=== PATIENT | female | born 1930 | race African-American/Black ===

== ENCOUNTER 2021-05-05 08:47 | Emergency (ER) | payer OTHER ==
[~2021-05-05] VITALS: Ht 165.1 cm; Wt 92.0 kg
[2021-05-05] MEDS ORDERED: XAR15 MT (10:51)
[2021-05-05 13:26] VITALS: BP 121/47
== END 2021-05-05 13:45 | disposition home or self-care (01) ==
LOC: ER 09:01
DX: I82.401 Acute embolism and thrombosis of unspecified deep veins of right lower extremity (principal)
CPT/HCPCS: 99283

== ENCOUNTER 2021-06-15 11:10 | Inpatient (IN) | payer OTHER ==
[~2021-06-15] VITALS: Ht 157.5 cm; Wt 70.3 kg
[~2021-06-15 11:10] MED LIST: XAR15 MT
[2021-06-15 12:07] LABS: CHLORIDE 110 mEq/L (98-107)
[2021-06-15 12:21] LABS: HEMOGLOBIN. 7.1 g/dL (12.0-16.0); MEAN CORPUSCULAR HEMOGLOBIN 31.3 pg (28.0-32.0); MEAN CORPUSCULAR VOLUME 87.5 fL (81.0-99.0); PLATELET 220 x1000/uL (130-400); RED BLOOD CELL COUNT 2.28 mill/uL (4.2-5.4); RED CELL DISTRIBUTION WIDTH 14.9 % (11.6-14.6)
[2021-06-15] MEDS ORDERED: PIPERACILLIN/TAZ 3.375G PREMIX 50 ML IV ONE (13:00)
[2021-06-15] MEDS ORDERED: VANCOMYCIN 1 G PREMIX 200 ML IV ONE (13:00)
[2021-06-15 13:49] LABS: PLATELET ESTIMATE NORMAL
[2021-06-15] MEDS ORDERED: LIDOCAINE HCL 1% 20ML VIAL (Pyxis) INJ ONE (13:55)
[2021-06-15] MEDS ORDERED: NOREPINEPHRINE 8MG/250ML PMX 250 ML IV STA (14:14)
[2021-06-15] MEDS ORDERED: NOREPINEPHRINE 8MG/250ML PMX 250 ML IV ONE (14:25)
[2021-06-15] MEDS ORDERED: SODIUM CHLORIDE 0.9% 1000ML BAG (SEPSIS BOLUS) IV ONE (16:00)
[2021-06-15 16:29] LABS: CLARITY URINE CLEAR (CLEAR); COLOR URINE DARK YELLOW (YELLOW); KETONES URINE NEGATIVE (NEGATIVE); LEUKOCYTE ESTERASE URINE TRACE (NEGATIVE); NITRITE URINE NEGATIVE (NEGATIVE); OCCULT BLOOD URINE NEGATIVE (NEGATIVE); PROTEIN URINE TRACE (NEGATIVE); SPECIFIC GRAVITY URINE 1.014 (1.005-1.030)
[2021-06-15] MEDS ORDERED: GUAIFENESIN 200MG/10ML SUGAR FREE UDC PO PRN (16:45)
[2021-06-15] MEDS ORDERED: DOCUSATE SODIUM 100MG CAPSULE PO PRN (16:45)
[2021-06-15] MEDS ORDERED: NITROGLYCERIN 0.4MG TABLET SL SL PRN (16:45)
[2021-06-15] MEDS ORDERED: CLONIDINE 0.1MG TABLET PO PRN (16:45)
[2021-06-15] MEDS ORDERED: ONDANSETRON HCL 4MG/2ML INJ IV PRN (16:45)
[2021-06-15] MEDS ORDERED: ACETAMINOPHEN 325MG TABLET PO PRN ×2 (16:45)
[2021-06-15] MEDS ORDERED: MAGNESIUM/ALUMINUM HYDROXIDE/SIMETHICONE 30ML UDC PO PRN (16:45)
[2021-06-15] MEDS ORDERED: IPRATROPIUM/ALBUTEROL 0.5-3(2.5)MG/3ML NEB NEB PRN (16:45)
[2021-06-15] MEDS ORDERED: POTASSIUM CHLORIDE 20MEQ TABLET SR PO NR (16:56)
[2021-06-15] MEDS ORDERED: NOREPINEPHRINE 8 MG in DEXT 5% WATER 242 ML IV PRN (17:00)
[2021-06-15] MEDS: DEXT 5%/0.45% NACL 1000ML 1,000 ML IV SCH (17:39)
[2021-06-15 17:44] LABS: INR 1.2; PROTHROMBIN TIME 12.7 sec (9.6-11.0)
[2021-06-15 17:46] LABS: FOLIC ACID (FOLATE) SERUM 8.2 ng/mL (>5.38)
[2021-06-15] MEDS ORDERED: DOPAMINE 400MG/250ML PREMIX 250 ML IV PRN (20:00)
[2021-06-15] MEDS ORDERED: ZOLPIDEM TARTRATE 5MG TABLET PO PRN (21:00)
[2021-06-15] MEDS: PIPERACILLIN/TAZOBACTAM 2.25 G in DEXTROSE 5% WATER 50 ML IV SCH (22:07)
[2021-06-15 23:00] VITALS: BP 120/59
[2021-06-15 23:40] VITALS: BP 120/57
[2021-06-15 23:45] VITALS: BP 120/57
[2021-06-16] VITALS (83 sets, daily range): BP systolic 69–150; BP diastolic 13–92
[2021-06-16] MEDS ORDERED: MV-M1TAB19 PO (00:47)
[2021-06-16] MEDS ORDERED: FURO20TA4 PO (00:47)
[2021-06-16] MEDS ORDERED: ATOR20TA65 PO (00:49)
[2021-06-16] MEDS ORDERED: POTA10TA2 PO (00:49)
[2021-06-16] MEDS ORDERED: ATEN50TA PO (00:49)
[2021-06-16] MEDS ORDERED: AMLO5TAB88 PO (00:49)
[2021-06-16] MEDS: DEXT 5%/0.45% NACL 1000ML 1,000 ML IV SCH ×3 (03:01→23:39)
[2021-06-16 03:37] LABS: *AMPHETAMINES SCREEN URINE NEGATIVE (NEGATIVE); *BARBITURATES SCREEN URINE NEGATIVE (NEGATIVE); *BENZODIAZEPINES SCREEN URINE NEGATIVE (NEGATIVE); *COCAINE SCREEN URINE NEGATIVE (NEGATIVE); METHADONE URINE SCREEN NEGATIVE (NEGATIVE); OPIATES URINE SCREEN NEGATIVE (NEGATIVE)
[2021-06-16 03:38] LABS: CANNABINOID URINE SCREEN NEGATIVE (NEGATIVE); PHENCYCLIDINE URINE SCREEN NEGATIVE (NEGATIVE)
[2021-06-16] MEDS: PIPERACILLIN/TAZOBACTAM 2.25 G in DEXTROSE 5% WATER 50 ML IV SCH (06:09)
[2021-06-16 07:25] LABS: HEMATOCRIT. 23.5 % (36.0-48.0); HEMOGLOBIN. 7.9 g/dL (12.0-16.0); MEAN CORPUSCULAR HEMOGLOBIN 29.9 pg (28.0-32.0); MEAN CORPUSCULAR VOLUME 88.6 fL (81.0-99.0); MEAN PLATELET VOLUME 7.3 fl (7.4-10.4); PLATELET 210 x1000/uL (130-400); RED BLOOD CELL COUNT 2.66 mill/uL (4.2-5.4); RED CELL DISTRIBUTION WIDTH 15.1 % (11.6-14.6)
[2021-06-16 07:28] LABS: CHLORIDE 112 mEq/L (98-107)
[2021-06-16 07:41] LABS: PHOSPHORUS 2.6 mg/dL (2.5-4.9)
[2021-06-16] MEDS: PANTOPRAZOLE SODIUM 40 MG/VIAL IV SCH (08:40)
[2021-06-16] MEDS: DOPAMINE 400MG/250ML PREMIX 250 ML IV PRN ×2 (08:42→17:15)
[2021-06-16] MEDS ORDERED: POTASSIUM CHLORIDE INJ 80 MEQ in DEXT 5% WATER 500 ML IV ONE (08:45)
[2021-06-16] MEDS: POTASSIUM CHLORIDE INJ 40 MEQ in DEXT 5% WATER 250 ML IV SCH ×2 (15:04→17:16)
[2021-06-16] MEDS: VANCOMYCIN 500 MG PREMIX 100 ML IV SCH (17:14)
[2021-06-16] MEDS: PIPERACILLIN/TAZOBACTAM 2.25G in DEXTROSE 5% WATER 50ML IV SCH ×2 (17:15→23:42)
[2021-06-16 21:09] LABS: PLATELET ESTIMATE NORMAL
[2021-06-17] VITALS (86 sets, daily range): BP systolic 67–187; BP diastolic 20–140
[2021-06-17] MEDS: DOPAMINE 400MG/250ML PREMIX 250 ML IV PRN ×2 (04:34→15:37)
[2021-06-17] MEDS: PIPERACILLIN/TAZOBACTAM 2.25G in DEXTROSE 5% WATER 50ML IV SCH ×3 (05:33→18:54)
[2021-06-17] MEDS: PANTOPRAZOLE SODIUM 40 MG/VIAL IV SCH (09:01)
[2021-06-17] MEDS: DEXT 5%/0.45% NACL 1000ML 1,000 ML IV SCH ×2 (09:01→18:54)
[2021-06-17] MEDS: VANCOMYCIN 500 MG PREMIX 100 ML IV SCH (14:50)
[2021-06-17 17:43] LABS: HEMATOCRIT. 22.2 % (36.0-48.0); HEMOGLOBIN. 7.6 g/dL (12.0-16.0); MEAN CORPUSCULAR HEMOGLOBIN 30.9 pg (28.0-32.0); MEAN CORPUSCULAR VOLUME 90.3 fL (81.0-99.0); MEAN PLATELET VOLUME 7.5 fl (7.4-10.4); PLATELET 162 x1000/uL (130-400); RED BLOOD CELL COUNT 2.46 mill/uL (4.2-5.4); RED CELL DISTRIBUTION WIDTH 15.9 % (11.6-14.6)
[2021-06-17 18:26] LABS: PLATELET ESTIMATE NORMAL
[2021-06-17 18:56] LABS: CHLORIDE 111 mEq/L (98-107)
[2021-06-17] MEDS ORDERED: KCL 20MEQ/100ML PREMIX 100 ML IV NR (20:30)
[2021-06-18] VITALS (76 sets, daily range): BP systolic 40–145; BP diastolic 23–90
[2021-06-18] MEDS: PIPERACILLIN/TAZOBACTAM 2.25G in DEXTROSE 5% WATER 50ML IV SCH ×4 (00:14→18:13)
[2021-06-18] MEDS: DOPAMINE 400MG/250ML PREMIX 250 ML IV PRN (04:32)
[2021-06-18] MEDS: DEXT 5%/0.45% NACL 1000ML 1,000 ML IV SCH ×2 (05:57→15:51)
[2021-06-18] MEDS: PANTOPRAZOLE SODIUM 40 MG/VIAL IV SCH (08:26)
[2021-06-18 10:47] LABS: BASOPHILS % 0.1 % (0.0-2.0); EOSINOPHILS % 0.1 % (0.0-5.0); HEMATOCRIT. 21.6 % (36.0-48.0); HEMOGLOBIN. 7.5 g/dL (12.0-16.0); MEAN CORPUSCULAR HEMOGLOBIN 31.2 pg (28.0-32.0); MEAN CORPUSCULAR VOLUME 90.2 fL (81.0-99.0); MONOCYTES % 11.9 % (2.0-8.0); NEUTROPHILS % 78.9 % (40.0-76.0); PLATELET 138 x1000/uL (130-400); RED CELL DISTRIBUTION WIDTH 16.1 % (11.6-14.6)
[2021-06-18 11:06] LABS: CREATINE KINASE 30 IU/L (26-192)
[2021-06-18] MEDS: VANCOMYCIN 500 MG PREMIX 100 ML IV SCH (13:37)
[2021-06-18 16:24] LABS: BG BASE EXCESS -6.3 mmol/L (-2.0-2.0); BG CARBOXYHEMOGLOBIN 0.3 % (0.5-1.5); BG DEOXYHEMOGLOBIN 3.7 % (0.0-5.0); BG FRACTION INSPIRED OXYGEN 21; BG HCO3 ACT 17.6 mmol/L (22.0-26.0); BG METHEMOGLOBIN 0.6 % (0.0-1.5); BG OXYGEN SATURATION 96.3 % (92.0-98.5); BG OXYHEMOGLOBIN 95.4 % (94.0-97.0); BG PCO2 28.7 mmHg (35.0-45.0); BG PH 7.405 (7.350-7.450); BG PO2 89.9 mmHg (75.0-100.0); BG SAMPLE SITE RIGHT BRACHIAL; BG TOTAL HEMOGLOBIN 7.8 g/dL (12.0-18.0); BG VENT MODE ROOM AIR
[2021-06-19] VITALS (11 sets, daily range): BP systolic 99–144; BP diastolic 43–91
[2021-06-19] MEDS: PIPERACILLIN/TAZOBACTAM 2.25G in DEXTROSE 5% WATER 50ML IV SCH ×4 (00:36→17:33)
[2021-06-19] MEDS: DEXT 5%/0.45% NACL 1000ML 1,000 ML IV SCH ×2 (02:02→13:01)
[2021-06-19] MEDS: MIDODRINE HCL 2.5MG TABLET PO SCH ×3 (08:26→17:00)
[2021-06-19] MEDS: PANTOPRAZOLE SODIUM 40 MG/VIAL IV SCH (08:27)
[2021-06-19] MEDS ORDERED: MIDODRINE HCL 2.5MG TABLET PO SCH (14:00)
[2021-06-19] MEDS: VANCOMYCIN 500 MG PREMIX 100 ML IV SCH (14:08)
[2021-06-20] VITALS (13 sets, daily range): BP systolic 106–148; BP diastolic 39–110
[2021-06-20] MEDS: PIPERACILLIN/TAZOBACTAM 2.25G in DEXTROSE 5% WATER 50ML IV SCH ×3 (00:06→13:31)
[2021-06-20] MEDS: MIDODRINE HCL 2.5MG TABLET PO SCH ×2 (08:53→13:00)
[2021-06-20] MEDS: DEXT 5%/0.45% NACL 1000ML 1,000 ML IV SCH ×2 (08:53)
[2021-06-20] MEDS: PANTOPRAZOLE SODIUM 40 MG/VIAL IV SCH (08:53)
[2021-06-20] MEDS: VANCOMYCIN 500 MG PREMIX 100 ML IV SCH (13:45)
== END 2021-06-20 13:45 | disposition short-term general hospital (02) | DRG 871 ==
LOC: ER 11:10 → EDBEDREQ 15:58 → MICUSO 21:03 → 5EST 22:02
PROVIDERS: ADMIT Internal Medicine; ATTEND Internal Medicine
PROC: 02HV33Z Insertion of Infusion Device into Superior Vena Cava, Percutaneous Approach (ICD-10-PCS; principal; 2021-06-15)
PROC: B548ZZA Ultrasonography of Superior Vena Cava, Guidance (ICD-10-PCS; 2021-06-15)
DX: A41.51 Sepsis due to Escherichia coli [E. coli] (principal); G92 Toxic encephalopathy; N17.0 Acute kidney failure with tubular necrosis; R65.21 Severe sepsis with septic shock; E43 Unspecified severe protein-calorie malnutrition; L97.909 Non-pressure chronic ulcer of unspecified part of unspecified lower leg with unspecified severity; N39.0 Urinary tract infection, site not specified; D64.9 Anemia, unspecified; E83.51 Hypocalcemia; E87.6 Hypokalemia; M17.12 Unilateral primary osteoarthritis, left knee; I87.8 Other specified disorders of veins; Z20.822 Contact with and (suspected) exposure to COVID-19; I87.2 Venous insufficiency (chronic) (peripheral); F03.90 Unspecified dementia, unspecified severity, without behavioral disturbance, psychotic disturbance, mood disturbance, and anxiety; R09.89 Other specified symptoms and signs involving the circulatory and respiratory systems; R74.01 Elevation of levels of liver transaminase levels; L89.156 Pressure-induced deep tissue damage of sacral region; I73.9 Peripheral vascular disease, unspecified; R00.1 Bradycardia, unspecified; Z86.718 Personal history of other venous thrombosis and embolism; Z68.28 Body mass index [BMI] 28.0-28.9, adult; R60.0 Localized edema
CPT/HCPCS: 36415; 36600; 71045; 73590; 73718; 76937; 80048; 80053; 80061; 80202; 80305; 81003; 82040; 82375; 82550; 82607; 82746; 82805; 83036; 83540; 83550; 83605; 83735; 84100; 84134; 84145; 84484; 85025; 86850; 86870; 86900; 87077; 87186; 87426; 92610; 93005; 93923; 93970; 99291; C1725; C9113; J1265; J2543; J3370; J3480; J3490; J7060; A4315